=== PATIENT | male | born 1950 | race Hispanic/Latino ===

== ENCOUNTER 2018-04-18 05:36 | Emergency (ER) | payer MEDICARE ==
[2018-04-18 05:44] VITALS: BP 159/84
[2018-04-18] MEDS ORDERED: HYDROGEN PEROXIDE TP ONE (06:20)
[2018-04-18] MEDS ORDERED: ROBITUSSIN AC PO ONE (06:25)
[2018-04-18] MEDS ORDERED: HYDROGEN PEROXIDE ONE (06:52)
--- NOTE | 2018-04-18 06:53 | Emergency Department Report ---
<SPENCER BATISTA - Last Filed: 04/18/18 06:49> - General Chief Complaint: Upper Respiratory Infection Stated Complaint: COUGH FATIGUE HEADACHE X1WK Time Seen by Provider: 04/18/18 06:24 Source: patient Mode of arrival: Ambulatory Limitations: No Limitations - History of Present Illness Initial Comments: 67-year-old male presents to the emergency room for cough fatigue and headache 1 week. Patient was recently seen at [facility] on Tuesday and was given a prescription for Flonase, Tamiflu and Tessalon Perles. Patient reports no relief from the medications. Patient admits to a nonproductive cough denies any fever or chills no nausea no vomiting. Patient denies any history of asthma COPD or emphysema. Patient is a smoker. Is reporting his history he was exposed to agent orange. Patient denies any past medical history and does not take any medications on a daily basis. Patient also complains of right ear discomfort. MD Complaint: cough -: week(s) (1) Severity: moderate Improves With: nothing Worsens With: nothing Associated Symptoms: denies: fever, chills, headache, rhinorrhea, nasal congestion, sore throat, shortness of breath, abdominal pain, nausea - Related Data Previous Rx's Medication Instructions Recorded Last Taken Type ALBUTEROL Inhaler (OR & NICU) 2 puff IH QID PRN #200 inhalation 04/18/18 Unknown Rx [Proair] Azithromycin [Zithromax Z-ARAVIND] 250 mg PO DAILY 5 Days #6 tablet 04/18/18 Unknown Rx Brompheniramine/Pseudoephed/Dm 10 ml PO Q8HR PRN #118 ml 04/18/18 Unknown Rx [Bromfed Dm Cough Syrup] methylPREDNISolone [Medrol Dose 10 mg PO DAILY 5 Days #15 pack 04/18/18 Unknown Rx Aravind] Allergies Allergy/AdvReac Type Severity Reaction Status Date / Time No Known Allergies Allergy Unverified 04/18/18 05:38 ED Review of Systems Constitutional: denies: chills, fever Eyes: denies: eye pain, eye discharge, vision change ENT: ear pain (right ear discomfort). denies: throat pain Respiratory: cough Cardiovascular: denies: chest pain, palpitations Endocrine: no symptoms reported Gastrointestinal: denies: abdominal pain, nausea, diarrhea Genitourinary: denies: urgency, dysuria Musculoskeletal: denies: back pain, joint swelling, arthralgia Skin: denies: rash, lesions Neurological: denies: headache, weakness, paresthesias Psychiatric: denies: anxiety, depression Hematological/Lymphatic: denies: easy bleeding, easy bruising ED Past Medical Hx - Past Medical History Previous Medical History?: No Additional medical history: exposure to agent orange - Surgical History Past Surgical History?: Yes Hx Appendectomy: Yes Additional Surgical History: hernia repair, cyst removed - Social History Smoking Status: Current Every Day Smoker Substance Use Type: Alcohol - Medications Home Medications: Home Medications Medication Instructions Recorded Confirmed Last Taken Type ALBUTEROL Inhaler (OR & NICU) 2 puff IH QID PRN #200 inhalation 04/18/18 Unknown Rx [Proair] Azithromycin [Zithromax Z-ARAVIND] 250 mg PO DAILY 5 Days #6 tablet 04/18/18 Unknown Rx Brompheniramine/Pseudoephed/Dm 10 ml PO Q8HR PRN #118 ml 04/18/18 Unknown Rx [Bromfed Dm Cough Syrup] methylPREDNISolone [Medrol Dose 10 mg PO DAILY 5 Days #15 pack 04/18/18 Unknown Rx Aravind] ED Physical Exam - General Limitations: No Limitations General appearance: alert, in no apparent distress - Head Head exam: Present: atraumatic, normocephalic - Eye Eye exam: Present: PERRL, EOMI - ENT ENT exam: Present: mucous membranes moist - Expanded ENT Exam Expanded TM/Canal exam: Cerumen Impaction: Right TM - Neck Neck exam: Present: normal inspection, full ROM - Respiratory Respiratory exam: Present: normal lung sounds bilaterally. Absent: respiratory distress - Cardiovascular Cardiovascular Exam: Present: regular rate, normal rhythm. Absent: systolic murmur, diastolic murmur, rubs, gallop - GI/Abdominal GI/Abdominal exam: Present: soft, normal bowel sounds - Extremities Exam Extremities exam: Present: normal inspection - Back Exam Back exam: Present: normal inspection - Neurological Exam Neurological exam: Present: alert, oriented X3 - Psychiatric Psychiatric exam: Present: normal affect, normal mood - Skin Skin exam: Present: warm, dry, intact, normal color. Absent: rash ED Medical Decision Making - Medical Decision Making Patient has been evaluated by this provider in [facility]. Chest x-ray has been ordered and Robitussin AC since is driving patient home. Patient has right ear cerumen impaction removed by aging room hand followed up by me. Livier Hui PA-C will follow patient waiting for chest x-ray results. ED Disposition Clinical Impression: URI (upper respiratory infection) Qualifiers: URI type: unspecified URI Qualified Code(s): J06.9 - Acute upper respiratory infection, unspecified COPD (chronic obstructive pulmonary disease) Qualifiers: COPD type: unspecified COPD Qualified Code(s): J44.9 - Chronic obstructive pulmonary disease, unspecified Disposition: DC- TO HOME OR SELFCARE Condition: Stable Instructions: Chronic Obstructive Pulmonary Disease (ED), Upper Respiratory Infection (ED) Additional Instructions: Follow up with a primary care doctor in the next 2-3 days. Take all medication as prescribed. Return to the emergency room for any new or worsening symptoms or if symptoms do not improve. Prescriptions: Brompheniramine/Pseudoephed/Dm [Bromfed Dm Cough Syrup] 10 ml PO Q8HR PRN #118 ml PRN Reason: Cough methylPREDNISolone [Medrol Dose Aravind] 10 mg PO DAILY 5 Days #15 pack ALBUTEROL Inhaler (OR & NICU) [Proair] 2 puff IH QID PRN #200 inhalation PRN Reason: Shortness Of Breath Azithromycin [Zithromax Z-ARAVIND] 250 mg PO DAILY 5 Days #6 tablet Referrals: [facility] LINDSAY [Primary Care Provider] - 2-3 Days Print Language: FRISIAN <LIVIER HUI - Last Filed: 04/18/18 07:32> ED Review of Systems ROS: Stated complaint: COUGH FATIGUE HEADACHE X1WK Other details as noted in HPI ED Course Vital Signs 04/18/18 05:38 Temperature 97.6 F Pulse Rate 95 H Respiratory 18 Rate Blood Pressure 159/84 O2 Sat by Pulse 96 Oximetry ED Medical Decision Making - Radiology Data Radiology results: report reviewed, image reviewed PROCEDURE: XR CHEST ROUTINE 2V TECHNIQUE: PA and lateral views the chest were submitted. HISTORY: cough COMPARISONS: None FINDINGS: The lungs are hyperinflated. There are no infiltrates or effusions. The heart size is normal. The lungs are not congested. The skeletal structures reveal mild disc degeneration in the dorsal spine. IMPRESSION: COPD. No acute process in the chest.. This document is electronically signed by Deep Azul MD., April 18 2018 07:02:48 AM ET - Medical Decision Making s/o taken over from DAYSI Smith. CXR with COPD changes otherwise no acute process. Will give pt albuterol inhaler, z-pac, medrol dose pack, and cough sup pressant to take at night. Advised pt to follow up with his PCP in the next two- three days. Discussed smoking cessation with pt. Discussed radiology results with pt. Discussed with pt to return to the ED for new or worsening symptoms or if symptoms do not improve. VSS. oxygen saturation is 96% on RA. Pt is afebrile. Critical care attestation.: If time is entered above; I have spent that time in minutes in the direct care of this critically ill patient, excluding procedure time. ED Disposition Is pt being admited?: No Does the pt Need Aspirin: No Time of Disposition: 07:32
--- NOTE | 2018-04-18 07:05 | XRay Report ---
PROCEDURE: XR CHEST ROUTINE 2V TECHNIQUE: PA and lateral views the chest were submitted. HISTORY: cough COMPARISONS: None FINDINGS: The lungs are hyperinflated. There are no infiltrates or effusions. The heart size is normal. The rocco gs are not congested. The skeletal structures reveal mild disc degeneration in the dorsal spine. IMPRESSION: COPD. No acute process in the chest.. This document is electronically signed by Deep Azul MD., April 18 2018 07:02:48 AM ET
== END 2018-04-18 07:46 | disposition home or self-care (01) ==
LOC: ED 05:36
DX: J44.9 Chronic obstructive pulmonary disease, unspecified (principal); J06.9 Acute upper respiratory infection, unspecified; H61.21 Impacted cerumen, right ear; F17.200 Nicotine dependence, unspecified, uncomplicated
CPT/HCPCS: 71046; 99283